=== PATIENT | female | born 1990 | race Caucasian/White ===

== ENCOUNTER → 2018-07-03 | Day surgery (SDC) | payer BC, OTHER ==
--- NOTE | 2018-07-06 16:48 | PATH ---
Cytology Non-Gynecological Report Patient Name: ADELINA MUNOZ [facility]. Rec. #: [id number] /Age/Gender: 1990 (Age: 27) / F Account: [id number] Location: RADIOLOGY INTER Taken: 07/03/2018 Received: 07/03/2018 Reported: 07/06/2018 Physicians: Mike Thomas M.D. Specimen(s) Received RIGHT THYROID FNA Clinical History Right thyroid nodule, 1.04 x 0.59 x 0.59 cm Final Diagnosis THYROID, RIGHT, FINE NEEDLE ASPIRATION: SATISFACTORY FOR EVALUATION. B[place] CLASS II: BENIGN. CYTOLOGIC FINDINGS SHOW A BENIGN FOLLICULAR NODULE WITH FEATURES SUGGESTIVE OF CHRONIC LYMPHOCYTIC THYROIDITIS. SMALL FOLLICULAR CELLS DISPERSED CLUSTERS AND FRAGMENTS IN A BACKGROUND OF THIN COLLOID, LYMPHOCYTES, LYMPHOHISTIOCYTIC AGGREGATES, AND LYMPHOID TANGLES. Comment: Suggest clinical/radiologic and serologic correlation. Electronically Signed Kasey Shaffer M.D. Gross Description Received are eight direct smears, four of which are air-dried and Diff-Quik stained, and four of which are alcohol fixed and Pap stained. Also received is 20 ml of bloody formalin from which one cellblock is prepared.
== END | disposition home or self-care (01) ==
LOC: JRADIR 10:00
PROVIDERS: ATTEND Internal Medicine Endocrinology, Diabetes & Metabolism
PROC: 0G9H3ZX Drainage of Right Thyroid Gland Lobe, Percutaneous Approach, Diagnostic (ICD-10-PCS; principal; 2018-07-03)
PROC: BG44ZZZ Ultrasonography of Thyroid Gland (ICD-10-PCS; 2018-07-03)
DX: E04.1 Nontoxic single thyroid nodule (principal)
CPT/HCPCS: 76942; 88173; 88305-TC

== ENCOUNTER 2023-02-17 16:37 | Emergency (ER) | payer BC, OTHER ==
[2023-02-17 16:43] VITALS: BMI 29.6
[2023-02-17] MEDS ORDERED: ACETAMINOPHEN 1000 MG/100 ML BAG IVPB ONE (17:45)
[2023-02-17] MEDS ORDERED: SODIUM CHLORIDE 0.9% 500 ML INFUS.BAG IV ONE (17:45)
[2023-02-17] MEDS ORDERED: ACETAMINOPHEN INJECTION 100 ML IVPB ONE (17:48)
[2023-02-17 18:21] LABS: BASO % 0.5 % (0-2.0); EOS % 0.5 % (0-4.5); HEMOGLOBIN 12.5 GM/dL (10.7-15.3); LYMPH % 23.7 % (8-40); MCH 25.2 pg (25.7-33.7); MEAN CELL VOLUME 76.2 fl (80-96); MEAN PLT VOLUME 8.3 fl (7.5-11.1); MONO % 5.5 % (3.8-10.2); NEUT % 69.8 % (42.8-82.8); PLATELET COUNT 250 10^3/uL (134-434); RBC 4.98 M/mm3 (3.60-5.2); RDW 15.7 % (11.6-15.6)
[2023-02-17 18:40] LABS: POTASSIUM 3.4 mmol/L (3.5-5.1)
[2023-02-17 18:42] LABS: ALBUMIN 4.1 g/dl (3.4-5.0); BLOOD UREA NITROGEN 7.4 mg/dL (7-18); CALCIUM 8.9 mg/dL (8.5-10.1); MAGNESIUM 2.1 mg/dL (1.8-2.4)
[2023-02-17 18:45] LABS: CREATININE 0.7 mg/dL (0.55-1.3)
[2023-02-17 18:46] LABS: BILIRUBIN,TOTAL 0.4 mg/dL (0.2-1); TOT PROT 7.7 g/dl (6.4-8.2)
[2023-02-17 20:12] VITALS: TEMP 98.2
[2023-02-17 21:03] VITALS: BP 110/75; PULSE 67; RESP 18
== END 2023-02-17 21:03 | disposition home or self-care (01) ==
LOC: JER 16:37
PROC: 3E033NZ Introduction of Analgesics, Hypnotics, Sedatives into Peripheral Vein, Percutaneous Approach (ICD-10-PCS; principal; 2023-02-17)
DX: R42 Dizziness and giddiness (principal); R07.89 Other chest pain; R00.2 Palpitations; R06.02 Shortness of breath; I49.3 Ventricular premature depolarization; M79.602 Pain in left arm; Z20.822 Contact with and (suspected) exposure to COVID-19
CPT/HCPCS: 0241U-QW; 36415; 80053; 83735; 84443; 84484; 84702; 85025; 93005; 93010; 99284-25

== ENCOUNTER 2023-06-30 22:52 | Emergency (ER) | payer BC, OTHER ==
[2023-06-30 22:58] VITALS: BP 134/83; PULSE 70; RESP 18; TEMP 98; BMI 30.4
[2023-07-01] MEDS ORDERED: ACETAMINOPHEN 325 MG TABLET (FP) ONE (00:23)
[2023-07-01] MEDS: ACETAMINOPHEN 500 MG TABLET (FP) PO ONE (00:28)
== END 2023-07-01 00:28 | disposition home or self-care (01) ==
LOC: JER 22:52
DX: R07.89 Other chest pain (principal)
CPT/HCPCS: 93005; 93010; 99283-25

== ENCOUNTER 2023-11-06 12:29 | Emergency (ER) | payer BC, OTHER ==
[2023-11-06 12:38] VITALS: TEMP 98.6
[2023-11-06 14:00] LABS: BASO % 0.3 % (0-2.0); EOS % 0.6 % (0-4.5); HEMATOCRIT 38.9 % (32.4-45.2); HEMOGLOBIN 12.5 GM/dL (10.7-15.3); LYMPH % 17.8 % (8-40); MCH 25.5 pg (25.7-33.7); MCHC 32.2 g/dl (32.0-36.0); MEAN CELL VOLUME 79.1 fl (80-96); MONO % 6.2 % (3.8-10.2); NEUT % 75.1 % (42.8-82.8); PLATELET COUNT 226 10^3/uL (134-434); RBC 4.92 M/mm3 (3.60-5.2); RDW 16.6 % (11.6-15.6)
[2023-11-06] MEDS: SODIUM CHLORIDE 0.9% 500 ML INFUS.BAG IV ONE (14:02)
[2023-11-06 14:12] LABS: INR 0.98 (0.83-1.09); PROTHROMBIN TIME (PATIENT) 11.3 SEC (9.7-13.0)
[2023-11-06 14:26] LABS: POTASSIUM 4.1 mmol/L (3.5-5.1)
[2023-11-06 14:28] LABS: CALCIUM 9.2 mg/dL (8.5-10.1)
[2023-11-06 14:29] LABS: BLOOD UREA NITROGEN 11.2 mg/dL (7-18); MAGNESIUM 2.2 mg/dL (1.8-2.4)
[2023-11-06 14:33] LABS: BILIRUBIN,TOTAL 0.4 mg/dL (0.2-1); CREATININE 0.7 mg/dL (0.55-1.3)
[2023-11-06 15:22] LABS: HIV INTERPRETATION NEGATIVE (NEGATIVE)
[2023-11-06 17:44] VITALS: BP 117/68; PULSE 78; RESP 18
== END 2023-11-06 17:57 | disposition home or self-care (01) ==
LOC: JER 12:29
DX: I49.3 Ventricular premature depolarization (principal); R00.2 Palpitations; R07.9 Chest pain, unspecified
CPT/HCPCS: 36415; 71046-TC-FY; 76705-TC; 80053; 83735; 84439; 84443; 84484; 84703; 85025; 85379; 85610; 87389; 93005; 93010; 99285-25